=== PATIENT | male | born 1965 | race Caucasian/White ===

== ENCOUNTER 2018-03-25 15:39 | Emergency (ER) | payer OTHER ==
[~2018-03-25] VITALS: Ht 165.1 cm; Wt 86.2 kg
[~2018-03-25 15:39] MED LIST: ALLOPURINOL100 MG PO; AMLODIPINE10 M1 PO; ATORVASTATIN CA40 M1 PO; CARVEDILOL25 M1 PO; CLOPIDOGREL75 M1 PO; COLACE100 MG PO; GLIPIZIDE5 MG PO; ISOSORBIDE DINI20 MG PO; JANUVIA100 M1 PO; LASIX40 MG PO; LEVEMIR100 U/M1 SC; LISINOPRIL2.5 MG PO; OMEPRAZOLE DR20 M1 PO; VITAMIN D32000 I2 PO
[2018-03-25 16:08] VITALS: Ht 165.1 cm; Wt 86.2 kg
[2018-03-25 17:25] LABS: BASOPHIL % 0.4 % (0-2); PLATELET COUNT 143 x10^3mcL (130-400); RED CELL DISTRIBUTION WIDTH 12.9 % (11.5-14.5)
[2018-03-25 17:35] LABS: ALBUMIN 3.8 g/dL (3.4-5.0); BILIRUBIN TOTAL 0.49 mg/dL (0.20-1.00); CALCIUM 9.1 mg/dL (8.5-10.1); POTASSIUM SERUM 4.1 mmol/L (3.5-5.1)
[2018-03-25 17:41] LABS: CREATININE SERUM 4.3 mg/dL (0.7-1.3); TOTAL PROTEIN, SERUM 8.8 g/dL (6.4-8.2)
[2018-03-25 17:58] VITALS: BP 149/99
== END 2018-03-25 17:58 | disposition home or self-care (01) ==
LOC: ED 15:39
PROVIDERS: Emergency Medicine
DX: K59.00 Constipation, unspecified (principal); I10 Essential (primary) hypertension; E11.9 Type 2 diabetes mellitus without complications
CPT/HCPCS: 36415

== ENCOUNTER 2018-05-01 16:10 | Emergency (ER) | payer OTHER ==
[~2018-05-01] VITALS: Ht 165.1 cm; Wt 86.2 kg
[2018-05-01 16:21] VITALS: Ht 165.1 cm; Wt 86.2 kg
[2018-05-01 17:25] LABS: BASOPHIL % 0.2 % (0-2); PLATELET COUNT 133 x10^3mcL (130-400); RED CELL DISTRIBUTION WIDTH 13.3 % (11.5-14.5)
[2018-05-01 17:28] LABS: BILIRUBIN TOTAL 1.46 mg/dL (0.20-1.00); CALCIUM 8.5 mg/dL (8.5-10.1); CARBON DIOXIDE 28.2 mmol/L (21-32); POTASSIUM SERUM 3.8 mmol/L (3.5-5.1)
[2018-05-01 17:29] LABS: ALBUMIN 3.1 g/dL (3.4-5.0); TOTAL PROTEIN, SERUM 8.4 g/dL (6.4-8.2)
[2018-05-01 17:30] LABS: CREATININE SERUM 5.3 mg/dL (0.7-1.3)
[2018-05-01 19:06] VITALS: BP 126/69
== END 2018-05-01 19:06 | disposition home or self-care (01) ==
LOC: ED 16:10
PROVIDERS: Emergency Medicine
DX: E11.22 Type 2 diabetes mellitus with diabetic chronic kidney disease (principal); I12.9 Hypertensive chronic kidney disease with stage 1 through stage 4 chronic kidney disease, or unspecified chronic kidney disease; N18.9 Chronic kidney disease, unspecified
CPT/HCPCS: 83880; J0696; Q0092

== ENCOUNTER 2018-05-02 17:10 | Emergency (ER) | payer OTHER ==
[~2018-05-02] VITALS: Ht 165.1 cm; Wt 86.6 kg
[2018-05-02 17:19] VITALS: Ht 165.1 cm; Wt 86.6 kg
[2018-05-02 18:58] VITALS: BP 133/78
== END 2018-05-02 18:58 | disposition home or self-care (01) ==
LOC: ED 17:10
DX: R50.9 Fever, unspecified (principal); R11.10 Vomiting, unspecified; I10 Essential (primary) hypertension; E11.9 Type 2 diabetes mellitus without complications; Z00.00 Encounter for general adult medical examination without abnormal findings

== ENCOUNTER 2018-12-04 23:51 | Emergency (ER) | payer OTHER ==
[~2018-12-04] VITALS: Ht 165.1 cm; Wt 87.1 kg
[2018-12-04 23:59] VITALS: Ht 165.1 cm; Wt 87.1 kg
[2018-12-05 01:22] VITALS: BP 153/90
== END 2018-12-05 01:25 | disposition home or self-care (01) ==
LOC: ED 23:51
DX: R05 Cough (principal); M54.6 Pain in thoracic spine; R06.02 Shortness of breath; I12.0 Hypertensive chronic kidney disease with stage 5 chronic kidney disease or end stage renal disease; N18.5 Chronic kidney disease, stage 5

== ENCOUNTER 2019-02-25 16:49 | Emergency (ER) | payer OTHER ==
[~2019-02-25] VITALS: Ht 165.1 cm; Wt 87.7 kg
[2019-02-25 16:59] VITALS: BP 140/106; Ht 165.1 cm; Wt 87.7 kg
[2019-02-25 19:55] LABS: microscopic required? YES; urine erythrocyte TRACE (NEGATIVE)
== END 2019-02-25 20:31 | disposition home or self-care (01) ==
LOC: ED 16:49
PROVIDERS: Emergency Medicine
DX: N39.0 Urinary tract infection, site not specified (principal); M10.9 Gout, unspecified; E11.22 Type 2 diabetes mellitus with diabetic chronic kidney disease; I12.0 Hypertensive chronic kidney disease with stage 5 chronic kidney disease or end stage renal disease; N18.6 End stage renal disease; Z99.2 Dependence on renal dialysis
CPT/HCPCS: 87491; 87591

== ENCOUNTER 2019-03-09 07:38 | Emergency (ER) | payer OTHER ==
[~2019-03-09] VITALS: Ht 165.1 cm; Wt 86.9 kg
[2019-03-09 07:57] VITALS: BP 148/99; Ht 165.1 cm; Wt 86.9 kg
== END 2019-03-09 10:19 | disposition home or self-care (01) ==
LOC: ED 07:38
DX: S93.505A Unspecified sprain of left lesser toe(s), initial encounter (principal); I10 Essential (primary) hypertension; E11.9 Type 2 diabetes mellitus without complications; E11.22 Type 2 diabetes mellitus with diabetic chronic kidney disease; I12.0 Hypertensive chronic kidney disease with stage 5 chronic kidney disease or end stage renal disease; N18.6 End stage renal disease; Z99.2 Dependence on renal dialysis; E66.9 Obesity, unspecified; W22.8XXA Striking against or struck by other objects, initial encounter; Y93.89 Activity, other specified; Y92.89 Other specified places as the place of occurrence of the external cause; Y99.8 Other external cause status

== ENCOUNTER 2019-04-16 23:32 | Inpatient (IN) | payer OTHER ==
[~2019-04-16] VITALS: Ht 165.1 cm; Wt 87.1 kg
[~2019-04-16 23:32] MED LIST changes: -AMLODIPINE10 M1 PO; +NOR5 PO
[2019-04-16 23:36] VITALS: Ht 165.1 cm; Wt 87.1 kg
[2019-04-17 00:27] LABS: BASOPHIL % 0.4 % (0-2); PLATELET COUNT 150 x10^3mcL (130-400); RED CELL DISTRIBUTION WIDTH 13.1 % (11.5-14.5)
[2019-04-17 01:03] LABS: ALBUMIN 3.9 g/dL (3.4-5.0); BILIRUBIN TOTAL 0.7 mg/dL (0.20-1.00); CALCIUM 9.3 mg/dL (8.5-10.1); CARBON DIOXIDE 34.4 mmol/L (21-32); POTASSIUM SERUM 3.9 mmol/L (3.5-5.1)
[2019-04-17 01:09] LABS: TOTAL PROTEIN, SERUM 8.7 g/dL (6.4-8.2)
[2019-04-17 01:10] LABS: CREATININE SERUM 5.3 mg/dL (0.7-1.3)
[2019-04-17 03:00] LABS: MAGNESIUM 2.5 mg/dL (1.8-2.4); PHOSPHOROUS 5.2 mg/dL (2.5-4.9)
[2019-04-17 03:01] LABS: CHOLESTEROL/HDL RATIO 3.3
[2019-04-17 03:30] VITALS: BP 119/80
[2019-04-17 05:49] VITALS: BP 123/70
[2019-04-17 06:27] LABS: BASOPHIL % 0.4 % (0-2); PLATELET COUNT 135 x10^3mcL (130-400); RED CELL DISTRIBUTION WIDTH 13.7 % (11.5-14.5)
[2019-04-17 07:01] LABS: CALCIUM 9.3 mg/dL (8.5-10.1); CARBON DIOXIDE 29.5 mmol/L (21-32); POTASSIUM SERUM 3.7 mmol/L (3.5-5.1)
[2019-04-17 07:13] LABS: CREATININE SERUM 5.3 mg/dL (0.7-1.3)
[2019-04-17 08:59] LABS: microscopic required? YES; urine erythrocyte NEGATIVE (NEGATIVE)
[2019-04-17] MEDS ORDERED: PHOS PO (09:24)
[2019-04-17 09:25] VITALS: BP 127/77
[2019-04-17 13:28] VITALS: BP 94/55
[2019-04-17 13:49] VITALS: BP 94/55
== END 2019-04-17 15:42 | disposition home or self-care (01) | DRG 682 ==
LOC: ED 23:32 → DU 04-17 02:09
PROVIDERS: Emergency Medicine; ADMIT Internal Medicine
DX: I12.0 Hypertensive chronic kidney disease with stage 5 chronic kidney disease or end stage renal disease (principal); N18.6 End stage renal disease; N17.0 Acute kidney failure with tubular necrosis; J96.01 Acute respiratory failure with hypoxia; E11.22 Type 2 diabetes mellitus with diabetic chronic kidney disease; D72.829 Elevated white blood cell count, unspecified; K21.9 Gastro-esophageal reflux disease without esophagitis; M10.9 Gout, unspecified; Z99.2 Dependence on renal dialysis; Z68.31 Body mass index [BMI] 31.0-31.9, adult; I69.392 Facial weakness following cerebral infarction; Z79.84 Long term (current) use of oral hypoglycemic drugs; I69.334 Monoplegia of upper limb following cerebral infarction affecting left non-dominant side
CPT/HCPCS: 78598; 82962; 83880; A9540; J1650; J7620; Q0092

== ENCOUNTER 2019-12-21 05:08 | Emergency (ER) | payer OTHER ==
[~2019-12-21] VITALS: Ht 165.1 cm; Wt 87.6 kg
[~2019-12-21 05:08] MED LIST changes: +PHOS PO
[2019-12-21 05:12] VITALS: Ht 165.1 cm; Wt 87.6 kg
[2019-12-21 08:10] VITALS: BP 123/77
== END 2019-12-21 08:10 | disposition home or self-care (01) ==
LOC: ED 05:08
DX: J02.9 Acute pharyngitis, unspecified (principal); I10 Essential (primary) hypertension; E11.9 Type 2 diabetes mellitus without complications; M10.9 Gout, unspecified; Z86.73 Personal history of transient ischemic attack (TIA), and cerebral infarction without residual deficits; Z99.2 Dependence on renal dialysis
CPT/HCPCS: 87804